=== PATIENT | male | born 1985 | race Caucasian/White ===

== ENCOUNTER 2021-10-10 19:48 | Emergency (ER) | payer SELFPAY ==
[~2021-10-10] VITALS: Ht 165.1 cm; Wt 69.5 kg
[2021-10-10 19:53] VITALS: BP 135/83
--- NOTE | 2021-10-10 19:59 | NUR ---
pt ambulated back to lobby.
--- NOTE | 2021-10-10 20:38 | NUR ---
PT TAKEN TO XRAY
--- NOTE | 2021-10-10 20:38 | NUR ---
pt ambulated to bed 01.
--- NOTE | 2021-10-10 20:48 | NUR ---
PT BACK FROM XRAY.
[2021-10-10 21:17] VITALS: BP 128/72
--- NOTE | 2021-10-10 21:35 | NUR ---
PATIENT ALERT ORIENT DC HOME STABLE NOT COMPLAINING OF PAIN VITALS SIGNS IN NORMAL LIMITS ALL DC INSTRUCTION GAVE AND EXPLAINED WE RECOMMEND COMING BACK TO ED IF THE SYMPTOMS GET WORSE OR DOESNT IMPROVING ALSO FOLLOW UP WITH THE PCP //Camron HILLS
== END 2021-10-10 21:35 | disposition home or self-care (01) ==
LOC: MED 19:48
DX: R07.81 Pleurodynia (principal)
CPT/HCPCS: 71101; 99283